=== PATIENT | male | born 1960 | race Caucasian/White ===

== ENCOUNTER 2017-03-29 14:28 | Outpatient (RCR) | payer OTHER ==
[~2017-03-29] VITALS: Ht 190.5 cm; Wt 172.7 kg
[2017-03-29 14:44] LABS: EOS # 0.3 (0.04-0.40); EOS % 3.6 % (0.0-4.0); HEMATOCRIT 34.1 % (42.0-52.0); HEMOGLOBIN 10.8 g/dL (13.5-18.0); LYMPH# 1.8 (1.50-4.00); MEAN CELL VOLUME 90 fl (78-100); MEAN CORPUSCULAR HEMOGLOBIN 29 pg (27-31); MEAN CORPUSCULAR HGB CONC 32 g/dL (33-37); MEAN PLATELET VOLUME 10.5 fl (7.4-10.4); MONO # 0.9 (0.20-0.80); NEU # 5.8 (1.40-6.50); PLATELET COUNT 322 K/mm3 (130-400); RED BLOOD COUNT 3.79 M/mm3 (4.20-5.60); RED CELL DISTRIBUTION WIDTH 13.8 % (11.5-14.5); WHITE BLOOD COUNT 8.8 K/mm3 (4.8-10.8)
[2017-03-29 14:45] VITALS: BP 136/93
[2017-03-29] MEDS ORDERED: ULTRAM50 M1 PO (18:51)
[2017-03-29] MEDS ORDERED: ACETAMINOPHEN-H1 TA2 PO (18:51)
[2017-03-29] MEDS ORDERED: ASPIRIN ADULT L81 M3 PO (18:52)
[2017-03-29] MEDS ORDERED: CEFAZOLIN2 GM/10 ML IV (18:55)
[2017-03-29] MEDS ORDERED: ZESTRIL40 M1 PO (18:55)
[2017-03-29] MEDS ORDERED: NEURONTIN300 MG/CAP (18:55)
[2017-03-29] MEDS ORDERED: BYSTOLIC10 MG PO (18:56)
[2017-03-29] MEDS ORDERED: RIFAMPIN 3300 MG/CAP PO (18:57)
[2017-03-29 20:27] LABS: ALBUMIN 3.4 g/dL (3.5-5.0); BUN/CREATININE RATIO 21.9 (6.0-26.0); CALCIUM 9.4 mg/dL (8.4-10.2); POTASSIUM 4.2 mmol/L (3.6-5.0); TOTAL BILIRUBIN 0.5 mg/dL (0.2-1.3); TOTAL PROTEIN 8.1 g/dL (6.3-8.2)
[2017-04-05 14:16] VITALS: BP 119/93
[2017-04-12 15:30] VITALS: BP 123/92
[2017-04-19 16:18] VITALS: BP 128/85
[2017-04-26 15:20] VITALS: BP 128/94
[2017-05-03 15:00] VITALS: BP 117/87
== END 2017-06-27 | disposition home or self-care (01) ==
LOC: AMSURD
PROVIDERS: Internal Medicine Infectious Disease
DX: M00.862 Arthritis due to other bacteria, left knee (principal); B95.61 Methicillin susceptible Staphylococcus aureus infection as the cause of diseases classified elsewhere

== ENCOUNTER → 2017-03-29 | Outpatient (CLI) | payer OTHER ==
[~2017-03-29] MED LIST: ACETAMINOPHEN-H1 TA2 PO; ASPIRIN ADULT L81 M3 PO; BYSTOLIC10 MG PO; CEFAZOLIN2 GM/10 ML IV; NEURONTIN300 MG/CAP; RIFAMPIN 3300 MG/CAP PO; ULTRAM50 M1 PO; ZESTRIL40 M1 PO
== END ==
LOC: LAB 14:06
DX: M00.062 Staphylococcal arthritis, left knee (principal); B95.61 Methicillin susceptible Staphylococcus aureus infection as the cause of diseases classified elsewhere

== ENCOUNTER → 2017-04-05 | Outpatient (CLI) | payer OTHER ==
[2017-03-29 14:45] VITALS: BP 136/93
[2017-04-05 14:26] LABS: EOS # 0.4 (0.04-0.40); HEMATOCRIT 37.6 % (42.0-52.0); HEMOGLOBIN 11.6 g/dL (13.5-18.0); LYMPH# 1.9 (1.50-4.00); MEAN CELL VOLUME 91 fl (78-100); MEAN CORPUSCULAR HEMOGLOBIN 28 pg (27-31); MEAN CORPUSCULAR HGB CONC 31 g/dL (33-37); MEAN PLATELET VOLUME 10.2 fl (7.4-10.4); MONO # 0.6 (0.20-0.80); NEU # 4.3 (1.40-6.50); PLATELET COUNT 372 K/mm3 (130-400); RED BLOOD COUNT 4.15 M/mm3 (4.20-5.60); RED CELL DISTRIBUTION WIDTH 14.3 % (11.5-14.5); WHITE BLOOD COUNT 7.3 K/mm3 (4.8-10.8)
[2017-04-05 14:29] LABS: EOS % 5.4 % (0.0-4.0)
[2017-04-05 14:33] LABS: ALBUMIN 3.9 g/dL (3.5-5.0); POTASSIUM 4.5 mmol/L (3.6-5.0); TOTAL BILIRUBIN 0.3 mg/dL (0.2-1.3); TOTAL PROTEIN 8.6 g/dL (6.3-8.2)
== END ==
LOC: LAB 14:14
PROVIDERS: Internal Medicine Infectious Disease
DX: M00.062 Staphylococcal arthritis, left knee (principal); B95.61 Methicillin susceptible Staphylococcus aureus infection as the cause of diseases classified elsewhere

== ENCOUNTER → 2017-04-12 | Outpatient (CLI) | payer OTHER ==
[2017-04-05 14:16] VITALS: BP 119/93
[2017-04-12 15:43] LABS: ALBUMIN 3.8 g/dL (3.5-5.0); BUN/CREATININE RATIO 25.5 (6.0-26.0); CALCIUM 9.1 mg/dL (8.4-10.2); POTASSIUM 4.2 mmol/L (3.6-5.0); TOTAL BILIRUBIN 0.2 mg/dL (0.2-1.3); TOTAL PROTEIN 8.3 g/dL (6.3-8.2)
[2017-04-12 15:45] LABS: EOS # 0.6 (0.04-0.40); HEMATOCRIT 38.4 % (42.0-52.0); LYMPH# 2.1 (1.50-4.00); MEAN CELL VOLUME 91 fl (78-100); MEAN CORPUSCULAR HEMOGLOBIN 28 pg (27-31); MEAN CORPUSCULAR HGB CONC 31 g/dL (33-37); MEAN PLATELET VOLUME 10.6 fl (7.4-10.4); MONO # 0.5 (0.20-0.80); NEU # 3.7 (1.40-6.50); PLATELET COUNT 252 K/mm3 (130-400); RED BLOOD COUNT 4.24 M/mm3 (4.20-5.60); RED CELL DISTRIBUTION WIDTH 14.9 % (11.5-14.5); WHITE BLOOD COUNT 6.9 K/mm3 (4.8-10.8)
== END ==
LOC: LAB 15:08
PROVIDERS: Internal Medicine Infectious Disease
DX: M00.062 Staphylococcal arthritis, left knee (principal); B95.61 Methicillin susceptible Staphylococcus aureus infection as the cause of diseases classified elsewhere

== ENCOUNTER → 2017-04-19 | Outpatient (CLI) | payer OTHER ==
[2017-04-12 15:30] VITALS: BP 123/92
[2017-04-19 17:10] LABS: EOS # 0.5 (0.04-0.40); HEMOGLOBIN 12.5 g/dL (13.5-18.0); LYMPH# 1.9 (1.50-4.00); MEAN CELL VOLUME 90 fl (78-100); MEAN CORPUSCULAR HEMOGLOBIN 28 pg (27-31); MEAN CORPUSCULAR HGB CONC 31 g/dL (33-37); MEAN PLATELET VOLUME 11.6 fl (7.4-10.4); MONO # 0.6 (0.20-0.80); NEU # 4.2 (1.40-6.50); PLATELET COUNT 214 K/mm3 (130-400); RED BLOOD COUNT 4.45 M/mm3 (4.20-5.60); RED CELL DISTRIBUTION WIDTH 15.5 % (11.5-14.5); WHITE BLOOD COUNT 7.2 K/mm3 (4.8-10.8)
[2017-04-19 17:19] LABS: EOS % 6.3 % (0.0-4.0)
[2017-04-19 20:03] LABS: ALBUMIN 3.8 g/dL (3.5-5.0); BUN/CREATININE RATIO 24.8 (6.0-26.0); POTASSIUM 4.9 mmol/L (3.6-5.0); TOTAL BILIRUBIN 0.2 mg/dL (0.2-1.3)
== END ==
LOC: LAB 14:14
PROVIDERS: Internal Medicine Infectious Disease
DX: L08.9 Local infection of the skin and subcutaneous tissue, unspecified (principal); A49.01 Methicillin susceptible Staphylococcus aureus infection, unspecified site

== ENCOUNTER → 2017-04-26 | Outpatient (CLI) | payer OTHER ==
[2017-04-19 16:18] VITALS: BP 128/85
[2017-04-26 15:51] LABS: EOS # 0.3 (0.04-0.40); HEMOGLOBIN 12.6 g/dL (13.5-18.0); LYMPH# 1.6 (1.50-4.00); MEAN CELL VOLUME 89 fl (78-100); MEAN CORPUSCULAR HEMOGLOBIN 28 pg (27-31); MEAN CORPUSCULAR HGB CONC 32 g/dL (33-37); MEAN PLATELET VOLUME 11.2 fl (7.4-10.4); MONO # 0.4 (0.20-0.80); NEU # 3.8 (1.40-6.50); PLATELET COUNT 215 K/mm3 (130-400); RED BLOOD COUNT 4.49 M/mm3 (4.20-5.60); RED CELL DISTRIBUTION WIDTH 14.9 % (11.5-14.5); WHITE BLOOD COUNT 6.3 K/mm3 (4.8-10.8)
[2017-04-26 16:12] LABS: ALBUMIN 3.8 g/dL (3.5-5.0); BUN/CREATININE RATIO 25.2 (6.0-26.0); CALCIUM 9.3 mg/dL (8.4-10.2); POTASSIUM 4.3 mmol/L (3.6-5.0); TOTAL BILIRUBIN 0.2 mg/dL (0.2-1.3); TOTAL PROTEIN 8.1 g/dL (6.3-8.2)
[2017-04-26 16:13] LABS: EOS % 5.4 % (0.0-4.0)
== END ==
LOC: LAB 14:42
PROVIDERS: Internal Medicine Infectious Disease
DX: T84.54XA Infection and inflammatory reaction due to internal left knee prosthesis, initial encounter (principal); M00.062 Staphylococcal arthritis, left knee; B95.61 Methicillin susceptible Staphylococcus aureus infection as the cause of diseases classified elsewhere

== ENCOUNTER → 2017-05-03 | Outpatient (CLI) | payer OTHER ==
[2017-04-26 15:20] VITALS: BP 128/94
[2017-05-03 15:15] LABS: ALBUMIN 3.9 g/dL (3.5-5.0); BUN/CREATININE RATIO 18.1 (6.0-26.0); CALCIUM 9.6 mg/dL (8.4-10.2); POTASSIUM 4.1 mmol/L (3.6-5.0); TOTAL BILIRUBIN 0.2 mg/dL (0.2-1.3)
[2017-05-03 16:32] LABS: EOS # 0.3 (0.04-0.40); EOS % 3.4 % (0.0-4.0); HEMATOCRIT 43.5 % (42.0-52.0); HEMOGLOBIN 13.7 g/dL (13.5-18.0); LYMPH# 1.9 (1.50-4.00); MEAN CELL VOLUME 89 fl (78-100); MEAN CORPUSCULAR HEMOGLOBIN 28 pg (27-31); MEAN CORPUSCULAR HGB CONC 32 g/dL (33-37); MEAN PLATELET VOLUME 11.9 fl (7.4-10.4); MONO # 0.5 (0.20-0.80); NEU # 4.7 (1.40-6.50); PLATELET COUNT 225 K/mm3 (130-400); RED CELL DISTRIBUTION WIDTH 15.3 % (11.5-14.5); WHITE BLOOD COUNT 7.5 K/mm3 (4.8-10.8)
== END ==
LOC: LAB 14:32
PROVIDERS: Internal Medicine Infectious Disease
DX: T84.54XA Infection and inflammatory reaction due to internal left knee prosthesis, initial encounter (principal); M00.062 Staphylococcal arthritis, left knee; B95.61 Methicillin susceptible Staphylococcus aureus infection as the cause of diseases classified elsewhere

== ENCOUNTER → 2018-01-31 | Outpatient (CLI) | payer OTHER | LOC: RAD 13:32 | DX: J98.11 Atelectasis (principal); R91.8 Other nonspecific abnormal finding of lung field; R05 Cough ==

== ENCOUNTER 2020-03-16 19:32 | Emergency (ER) | payer OTHER ==
[2020-03-16] MEDS ORDERED: CEPHALEXIN500 M1 PO (20:10)
[2020-03-16] MEDS ORDERED: ELIQUIS5 MG PO (20:11)
[2020-03-16] MEDS ORDERED: HYDRALAZINE HYD50 MG PO (20:11)
[2020-03-16] MEDS ORDERED: ZOLOFT 50MG50 MG PO (20:12)
[2020-03-16] MEDS ORDERED: CLARITIN-D 10 M1 T24 PO (20:13)
[2020-03-16] MEDS ORDERED: CHILDREN'S5 MG/5 M9 PO (20:13)
[2020-03-16] MEDS ORDERED: TYLENOL 325MG325 MG PO (20:14)
[2020-03-16] MEDS ORDERED: GLUCOPHAGE PO (20:14)
[2020-03-16 20:16] LABS: EOS # 0.3 (0.04-0.40); HEMATOCRIT 42.6 % (42.0-52.0); HEMOGLOBIN 13.4 g/dL (13.5-18.0); LYMPH# 1.7 (1.50-4.00); MEAN CELL VOLUME 94 fl (78-100); MEAN CORPUSCULAR HEMOGLOBIN 30 pg (27-31); MEAN CORPUSCULAR HGB CONC 32 g/dL (33-37); MEAN PLATELET VOLUME 11.9 fl (7.4-10.4); MONO # 0.6 (0.20-0.80); NEU # 4.2 (1.40-6.50); PLATELET COUNT 189 K/mm3 (130-400); RED BLOOD COUNT 4.52 M/mm3 (4.20-5.60); RED CELL DISTRIBUTION WIDTH 14.6 % (11.5-14.5); WHITE BLOOD COUNT 6.9 K/mm3 (4.8-10.8)
[2020-03-16 20:25] LABS: ALBUMIN 4.1 g/dL (3.4-4.8); POTASSIUM 3.9 mmol/L (3.5-5.1); SODIUM 138 mmol/L (136-145)
[2020-03-16 20:26] LABS: CALCIUM 9.1 mg/dL (8.3-10.5)
[2020-03-16 20:28] LABS: GLUCOSE 220 mg/dL (75-110); TOTAL PROTEIN 6.9 g/dL (6.2-8.1)
[2020-03-16 20:29] LABS: CARBON DIOXIDE 26 mmol/L (23-31); TOTAL BILIRUBIN 0.3 mg/dL (0.2-1.2)
[2020-03-16 20:33] LABS: AST-SGOT 40 U/L (5-34)
[2020-03-16 20:35] LABS: ALT/SGPT 89 U/L (0-55)
[2020-03-16 20:42] LABS: TROPONIN-I < 0.03 ng/mL (<0.030)
[2020-03-16] MEDS ORDERED: FUROSEMIDE20 MG PO (22:59)
[2020-03-16] MEDS ORDERED: AMIODARONE HCL400 MG PO (22:59)
[2020-03-16 23:34] VITALS: BP 129/102
== END 2020-03-16 23:34 | disposition home or self-care (01) ==
LOC: ED 19:32
PROVIDERS: Family Medicine
DX: E66.01 Morbid (severe) obesity due to excess calories (principal); I48.91 Unspecified atrial fibrillation; R60.9 Edema, unspecified; I50.9 Heart failure, unspecified; E11.9 Type 2 diabetes mellitus without complications; I25.10 Atherosclerotic heart disease of native coronary artery without angina pectoris; F17.210 Nicotine dependence, cigarettes, uncomplicated; Z20.828 Contact with and (suspected) exposure to other viral communicable diseases; Z86.718 Personal history of other venous thrombosis and embolism; Z86.711 Personal history of pulmonary embolism; Z95.5 Presence of coronary angioplasty implant and graft; Z88.0 Allergy status to penicillin; Z79.01 Long term (current) use of anticoagulants; Z79.84 Long term (current) use of oral hypoglycemic drugs

== ENCOUNTER → 2020-03-20 | Outpatient (CLI) | payer OTHER ==
[2020-03-16 23:34] VITALS: BP 129/102
[~2020-03-20] MED LIST changes: +AMIODARONE HCL400 MG PO; +CEPHALEXIN500 M1 PO; +CHILDREN'S5 MG/5 M9 PO; +CLARITIN-D 10 M1 T24 PO; +ELIQUIS5 MG PO; +FUROSEMIDE20 MG PO; +GLUCOPHAGE PO; +HYDRALAZINE HYD50 MG PO; +TYLENOL 325MG325 MG PO; +ZOLOFT 50MG50 MG PO
[2020-03-20 15:17] LABS: D-DIMER 0.28 mg/L FEU (0.15-0.50)
== END ==
LOC: LAB 14:46
PROVIDERS: Internal Medicine Interventional Cardiology
DX: R06.02 Shortness of breath (principal)

== ENCOUNTER → 2020-07-22 | Outpatient (CLI) | payer OTHER | LOC: CARDREHAB 09:45 | DX: G47.30 Sleep apnea, unspecified (principal) | CPT/HCPCS: G0399 ==

== ENCOUNTER → 2021-02-17 | Outpatient (CLI) | payer OTHER | LOC: RAD 10:00 | DX: E04.1 Nontoxic single thyroid nodule (principal) ==

== ENCOUNTER → 2023-05-17 | Outpatient (CLI) | payer OTHER | LOC: RAD 15:36 | DX: Z01.818 Encounter for other preprocedural examination (principal); I10 Essential (primary) hypertension; M25.552 Pain in left hip ==